=== PATIENT | male | born 1950 | race Caucasian/White ===

== ENCOUNTER 2018-09-24 19:39 | Inpatient (IN) | payer BC, OTHER ==
[~2018-09-24] VITALS: Ht 170.2 cm; Wt 73.0 kg
--- NOTE | 2018-09-24 19:50 | NUR ---
BIB RA FROM HOME. AAOX4. NAD NOTED, BREATHING EVEN AND UNLABORED. PT CAME IN D/T ACCIDENTAL INGESTION OF DIABETES MED ABOUT 7-10PILLS PER FAMILY AT BEDSIDE. BS REPORTED AT 209. MD AT BEDSIDE AWAITING FOR ORDERS
[2018-09-24] MEDS ORDERED: IV NS 0.9% 500 ML BAG IV ONE (20:00)
--- NOTE | 2018-09-24 20:10 | NUR ---
IV LINE OBTAINED ON R AC 18G. BLOOD DRAW AND SENT TO LAB
[2018-09-24 20:27] LABS: BASOPHILS # (AUTO) 0.1 /CMM (0.0-0.2); BASOPHILS % (AUTO) 1.2 % (0.0-2.0); EOSINOPHILS % (AUTO) 3.4 % (0.0-6.0); HEMATOCRIT 44 % (39-51); HEMOGLOBIN 15.4 g/dL (13.5-17.5); LYMPHOCYTES # (AUTO) 3.4 /CMM (0.8-4.8); LYMPHOCYTES % (AUTO) 43.2 % (20.0-44.0); MEAN CORPUSCULAR HGB CONC 35 g/dl (31.0-36.0); MEAN CORPUSCULAR VOLUME 91 fL (80-96); MONOCYTES # (AUTO) 0.6 /CMM (0.1-1.30); MONOCYTES % (AUTO) 7.3 % (2.0-12.0); NEUTROPHILS # (AUTO) 3.6 /CMM (1.8-8.9); NEUTROPHILS % (AUTO) 44.9 % (43.0-81.0); PLATELET COUNT (AUTO) 172 /CMM (150-450)
[2018-09-24 20:35] LABS: CALCIUM, SERUM 8.9 mg/dL (8.5-10.1); CREATININE 0.8 mg/dL (0.6-1.3); POTASSIUM 3.5 mmol/L (3.5-5.1)
[2018-09-24 20:39] LABS: ACETAMINOPHEN < 10 ug/ml (10-30); ALCOHOL, BLOOD < 3 mg/dL (0-0); SALICYLATE 2.5 mg/dL (2.8-20.0)
--- NOTE | 2018-09-24 20:52 | NUR ---
ARAVIND JON [phone]
[2018-09-24 20:56] LABS: ALBUMIN 3.6 g/dL (3.4-5.0); BILIRUBIN,DIRECT 0.1 mg/dL (0.0-0.2); BILIRUBIN,TOTAL 0.3 mg/dL (0.2-1.0); TOTAL PROTEIN, SERUM 7.6 g/dL (6.4-8.2)
[2018-09-24 20:58] LABS: APPEARANCE,URINE Clear (CLEAR); BILIRUBIN,URINE Negative (NEGATIVE); BLOOD, URINE Negative Ery/uL (NEGATIVE); COLOR,URINE Yellow (YELLOW); KETONES,URINE Negative (NEGATIVE); LEUKOCYTE ESTERASE ,URINE Negative (NEGATIVE); NITRITE, URINE Negative (NEGATIVE); PROTEIN,URINE Negative (NEGATIVE); UGLUCOSE 100 MG/DL mg/dL (NEGATIVE); UROBILINOGEN,URINE 0.2 EU/dL (0.2)
[2018-09-24] MEDS ORDERED: SODIUM BICARBONATE 5 MEQ/10 ML DISP.SYRIN IV ONE (21:00)
[2018-09-24] MEDS ORDERED: SODIUM BICARBONATE SYR 50 MEQ/50 ML DISP.SYRIN ONE ×2 (21:14→21:18)
--- NOTE | 2018-09-24 21:15 | NUR ---
CALLED NURSING SUP FOR [facility] BED
[2018-09-24] MEDS ORDERED: Z GUARD REMEDY 2 OZ OINT TP PRN (21:30)
[2018-09-24] MEDS ORDERED: MAG HYDROX/AL HYDROX/SIMETH 30 ML UDC PO PRN (21:30)
[2018-09-24] MEDS ORDERED: MAGNESIUM HYDROXIDE 30 ML UDC PO PRN (21:30)
[2018-09-24] MEDS ORDERED: HYDROCODONE/APAP 5/325MG 1 EACH TABLET PO PRN (21:30)
[2018-09-24] MEDS ORDERED: ACETAMINOPHEN 325 MG TABLET PO PRN (21:30)
[2018-09-24] MEDS ORDERED: ZOLPIDEM TARTRATE 5 MG TABLET PO PRN (21:30)
[2018-09-24] MEDS ORDERED: ONDANSETRON HCL/PF 4 MG/2 ML VIAL IVP PRN (21:30)
--- NOTE | 2018-09-24 21:37 | NUR ---
BED ASSIGNMENT 116
--- NOTE | 2018-09-24 22:13 | NUR ---
CALLED [facility] FOR REPORT. NURSE STILL WITH ANOTHER PT WILL. NURSE WILL CALL BACK TO GET REPORT
--- NOTE | 2018-09-24 22:18 | NUR ---
REPORT GIVEN TO BHAVNA PERALTA PT GOING TO [facility] 116
--- NOTE | 2018-09-24 22:54 | NUR ---
NOTIFIED PT'S ROOM WILL BE CHANGE. AWAITING NEW ROOM ASSIGNMENT.
--- NOTE | 2018-09-24 23:01 | NUR ---
SPOKE WITH POISON CONTROL AND UPDATED ON PT'S STATUS, STATES THEY WILL FOLLOW UP. Addendum: 09/24/18 at 2302 by AGATHA PER POISON CONTROL, RECOMMENDED ADDING BLOOD GAS. AARON JOENS NP
--- NOTE | 2018-09-24 23:32 | NUR ---
PER NURSING SUP, PT BED ASSIGNMENT 116
--- NOTE | 2018-09-24 23:43 | NUR ---
RT AT BEDSIDE FOR ABG. PT WILL THEN GO TO [facility] 116.
[2018-09-24 23:54] LABS: ABG OXYGEN SATURATION 93.7 % (92.0-98.5); ABG PCO2 38.9 mmHg (35.0-45.0); ABG PH 7.471 (7.350-7.450); ABG PO2 68.1 mmHg (75.0-100.0); COHb 1.1 % (0.5-1.5); MetHb 0.5 % (0.0-1.5); O2Hb 92.2 % (94.0-97.0); SITE, ABG Right Radial; VENT MODE, BG RA
--- NOTE | 2018-09-25 01:55 | NUR ---
PT TRANSPORT WI ACLS PROTOCOL TO [facility] 116-1
--- NOTE | 2018-09-25 02:00 | NUR ---
[facility] RN OPENING NOTES PATENT ARRIVED VIA GURNEY TO ROOM 116-1 W/ DX ACCIDENTAL METFORMIN OD & LACTIC ACIDOSIS UNDER CARE OF DR FAN QUIÑONEZ. PATIENT A/A/O X3, SAMI-SPEAKING BUT ABLE TO FOLLOW COMMANDS & STATE PAIN. CRYOPHONE USED FOR SOME ADMISSION QUESTIONS. BREATHING EVEN & UNLABORED, TOLERATING ROOM AIR. DENIES ANY SOB OR DIFFICULTY BREATHING. ON TELE W/ SINUS RHYTHM, HR 64. LEFT HAND IV #20 & RIGHT AC IV #18 INTACT & PATENT W/ DRESSING CDI, NO SIGNS OF INFILTRATION NOTED. NO S/S OF HYPOGLYCEMIA NOTED. DENIES ANY N/V. DENIES ANY PAIN OR DISCOMFORT @ THIS TIME. ABLE TO AMBULATE W/ STEADY GAIT BUT URINAL STILL PROVIDED. SKIN ASSESSMENT DONE, ORIENTED TO ROOM & STAFF. SAFETY MEASURES IN PLACE W/ SIDE RAILS UP & CALL LIGHT WITHIN REACH. ADMITTING ORDERS TO BE CARRIED OUT. WILL CONTINUE TO MONITOR CLOSELY.
[2018-09-25] MEDS: IV NS 0.9% 1,000 ML IV PRN ×2 (02:06→10:21)
[2018-09-25 02:17] VITALS: BP 133/76
[2018-09-25 04:00] VITALS: BP 123/75
[2018-09-25 07:19] LABS: BASOPHILS # (AUTO) 0.1 /CMM (0.0-0.2); BASOPHILS % (AUTO) 0.7 % (0.0-2.0); EOSINOPHILS % (AUTO) 3.8 % (0.0-6.0); HEMATOCRIT 41 % (39-51); HEMOGLOBIN 14.3 g/dL (13.5-17.5); LYMPHOCYTES # (AUTO) 2.6 /CMM (0.8-4.8); LYMPHOCYTES % (AUTO) 35.5 % (20.0-44.0); MEAN CORPUSCULAR HGB CONC 35 g/dl (31.0-36.0); MEAN CORPUSCULAR VOLUME 91 fL (80-96); MONOCYTES # (AUTO) 0.6 /CMM (0.1-1.30); MONOCYTES % (AUTO) 7.8 % (2.0-12.0); NEUTROPHILS # (AUTO) 3.9 /CMM (1.8-8.9); NEUTROPHILS % (AUTO) 52.2 % (43.0-81.0); PLATELET COUNT (AUTO) 143 /CMM (150-450); RED BLOOD CELL COUNT(AUTO) 4.52 MIL/uL (4.5-6.0); WHITE BLOOD COUNT (AUTO) 7.4 K/uL (4.3-11.0)
--- NOTE | 2018-09-25 07:30 | NUR ---
RN NOTES RECEIVED IN BED, ASLEEP BUT EASILY AWAKEN BY VERBAL STIMULI, PATIENT A/A/O X3, VERBALLY RESPONSIVE BUT EXPRESSES SELF BETTER IN LATVIAN LANGUAGE. CRYOPHONE USED TO COMMUNICATE TO PATIENT AND WHO IS TA BED SIDE. BREATHING EVEN & UNLABORED, TOLERATING ROOM AIR. DENIES ANY SOB OR DIFFICULTY BREATHING. NO COMPLAINTS OF PAIN AT THIS TIME. SINUS RHYTHM ON THE MONITOR WITH HR 60'S. IV ACCESS ON THE LEFT HAND IV #20 & RIGHT AC IV #18 INTACT & IN PLACE, DRESSING CDI, NO SIGNS OF INFILTRATION NOTED. WITH ONGOING IVF OF NS AT 75 CC/HR. PATIENT REFUSED BLOOD SUGAR AT THIS TIME ND HAD VERBALIZE DESIRES OF GOING BACK TO SLEEP. NO S/S OF HYPOGLYCEMIA NOTED. REMINDED TO CALL ME WHEN READY FOR BLOOD SUGAR CHECK. SAFETY MEASURES OBSERVED AND MAINTAINED IN PLACE, BED LOW AND LOCKED POSITION, SIDE RAILS UP, ENCOURAGE TO CALL FOR HELP AND ASSISTANCE, CALL LIGHT WITHIN REACH. WILL CONTINUE TO MONITOR AND ANTICIPATE NEEDS.
[2018-09-25 07:43] LABS: CALCIUM, SERUM 8.2 mg/dL (8.5-10.1); CREATININE 0.6 mg/dL (0.6-1.3); MAGNESIUM 1.5 mg/dL (1.8-2.4); PHOSPHORUS 3.2 mg/dL (2.5-4.9); POTASSIUM 3.6 mmol/L (3.5-5.1)
[2018-09-25 07:47] LABS: THYROID STIMULATING HORMONE 1.232 uIU/mL (0.358-3.74)
[2018-09-25] MEDS ORDERED: ASPI-1152 PO (07:53)
[2018-09-25] MEDS ORDERED: METF-440 PO (07:53)
[2018-09-25] MEDS ORDERED: GLIM2TAB2 PO (07:53)
[2018-09-25] MEDS ORDERED: RAMI2.5C2 PO (07:53)
[2018-09-25] MEDS ORDERED: MELO-107 PO (07:53)
[2018-09-25] MEDS ORDERED: CARV3.122 PO (07:53)
[2018-09-25] MEDS ORDERED: CITA20TA16 PO (07:53)
[2018-09-25] MEDS ORDERED: PANT40TA4 PO (07:53)
[2018-09-25 08:00] VITALS: BP 141/82
[2018-09-25] MEDS: Magnesium 1GM/D5W 100ML PREMIX 100 ML IV SCH ×3 (11:00→12:15)
--- NOTE | 2018-09-25 12:35 | NUR ---
RN NOTES PATIENT SEEN AND EXAMINED BY DR. PENNY. PER MD, PATIENT IS READY TO GO, WITH ORDERS FOR DISCHARGE. ORDERS NOTED AND CARRIED OUT. ALL QUESTIONS AND CONCERNS ADDRESSED APPROPRIATELY. ALL DISCHARGE AND MEDICATION INSTRUCTION GIVEN TO PATIENT AND DAUGHTER, WHO IS AT BEDSIDE. SKIN ASSESSMENT DONE. ALL VALUABLES ACCOUNTED AND GIVEN BACK TO THE PATIENT. DAUGHTER REQUESTED MAGNESIUM TO BE INFUSED COMPLETELY BEFORE GETTING WHEELED OUT OF THE UNIT. PATIENT KEPT ON IV INFUSION OF MAGNESIUM FOR A WHILE
--- NOTE | 2018-09-25 13:43 | NUR ---
RN NOTES PATIENT LEFT THE UNIT ACCOMPANIED BY DAUGHTER AND SON. IV LINE REMOVED. ID BAND REMOVED.
== END 2018-09-25 13:44 | disposition home or self-care (01) | DRG 812 ==
LOC: ER 19:41 → TELE-TD 09-25 01:27
PROVIDERS: ATTEND Family Medicine
DX: T38.3X1A Poisoning by insulin and oral hypoglycemic [antidiabetic] drugs, accidental (unintentional), initial encounter (principal); E87.2 Acidosis; E11.65 Type 2 diabetes mellitus with hyperglycemia; E83.42 Hypomagnesemia; Y92.009 Unspecified place in unspecified non-institutional (private) residence as the place of occurrence of the external cause; I10 Essential (primary) hypertension; Z79.84 Long term (current) use of oral hypoglycemic drugs; R74.8 Abnormal levels of other serum enzymes
CPT/HCPCS: 36415; 36600; 80048-TC; 80061-TC; 80076-TC; 80305; 81000-TC; 82803-TC; 82962-TC; 83605-TC; 83735-TC; 84100-TC; 84443-TC; 85025-TC; 87081-TC; G0378; G0480; J3475; J3490; J7030; J7040